=== PATIENT | female | born 1985 | race Caucasian/White ===

== ENCOUNTER → 2016-06-08 | Outpatient (CLI) | payer BC ==
[~2016-06-08] MED LIST: MULT-516 PO; NONE PER PT
[2016-06-08 12:29] LABS: HEMOGLOBIN 15.1 g/dL (11.7-16.4)
== END | disposition home or self-care (01) ==
LOC: STAR 11:34
PROVIDERS: ATTEND Obstetrics & Gynecology
DX: Z01.818 Encounter for other preprocedural examination (principal); Z30.2 Encounter for sterilization
CPT/HCPCS: 36415; 81001; 84703; 85025; 87086

== ENCOUNTER 2016-06-14 05:36 | Day surgery (SDC) | payer BC ==
[~2016-06-14] VITALS: Ht 162.6 cm; Wt 90.0 kg
[2016-06-14] MEDS ORDERED: BUPIVACAINE/PF-EPI 0.25% 1:200K ONE (06:14)
[2016-06-14] MEDS ORDERED: LACTATED RINGERS 1,000 ML IV SCH (06:20)
[2016-06-14 06:22] VITALS: BP 136/91
[2016-06-14 06:38] LABS: HCG UR OBC PASS
[2016-06-14] MEDS ORDERED: FENTANYL PF 100 MCG/2ML ONE ×2 (07:10→07:58)
[2016-06-14] MEDS ORDERED: LABETALOL 5MG/ML, 20ML IV PRN (07:30)
[2016-06-14] MEDS ORDERED: HYDROmorphone 1 MG/ML, 1ML IV PRN (07:30)
[2016-06-14] MEDS ORDERED: ONDANSETRON 2MG/ML, 2ML IVPush PRN (07:30)
[2016-06-14] MEDS ORDERED: MEPERIDINE/PF 25MG/0.5ML IVPush PRN (07:30)
[2016-06-14] MEDS ORDERED: OXYcodone 5 MG/5 ML ORAL.SOL UDC PO PRN (07:30)
[2016-06-14] MEDS ORDERED: hydrALAzine 20 MG/ML, 1ML IV PRN (07:30)
[2016-06-14] MEDS ORDERED: FENTANYL PF 100 MCG/2ML IV PRN (07:30)
[2016-06-14] MEDS ORDERED: OXYcodone 5 MG/5 ML ORAL.SOL UDC ONE (07:59)
[2016-06-14] MEDS ORDERED: ONDANSETRON 2MG/ML, 2ML IVPush STA (09:13)
[2016-06-14] MEDS ORDERED: ONDANSETRON 2MG/ML, 2ML ONE ×2 (09:16→10:56)
[2016-06-14] MEDS ORDERED: SUCCINYLCHOLINE 20 MG/ML, 10ML ONE (10:56)
[2016-06-14] MEDS ORDERED: NEOSTIGMINE 1 MG/ML, 10ML ONE (10:56)
[2016-06-14] MEDS ORDERED: DEXAMETHASONE 4 MG/ML, 5ML ONE (10:56)
[2016-06-14] MEDS ORDERED: CEFAZOLIN 1,000 MG ONE (10:56)
[2016-06-14] MEDS ORDERED: PROPOFOL 10 MG/ML, 20ML ONE (10:56)
[2016-06-14] MEDS ORDERED: GLYCOPYRROLATE 0.2MG/1ML ONE (10:56)
[2016-06-14] MEDS ORDERED: ROCURONIUM 10 MG/ML ONE (10:56)
[2016-06-14] MEDS ORDERED: KETOROLAC 30 MG/1 ML ONE (10:56)
== END 2016-06-14 10:35 | disposition home or self-care (01) ==
LOC: OUT 05:36
PROVIDERS: ATTEND Obstetrics & Gynecology
DX: Z30.2 Encounter for sterilization (principal); N83.8 Other noninflammatory disorders of ovary, fallopian tube and broad ligament; Z83.3 Family history of diabetes mellitus; E66.9 Obesity, unspecified; Z68.34 Body mass index [BMI] 34.0-34.9, adult
CPT/HCPCS: 58661; 81025; 88302; J0330; J0690; J1100; J1885; J2405; J2704; J2710; J3010; J7120; J3490